=== PATIENT | female | born 1955 | race Caucasian/White ===

== ENCOUNTER 2024-04-22 18:45 | Emergency (ER) | payer MEDICARE, OTHER ==
[~2024-04-22] VITALS: Ht 152.4 cm; Wt 65.8 kg
--- NOTE | 2024-04-22 19:11 | ERN ---
ED Note History of Present Illness Stated Complaint: BLEEDING HEAD INJURY FROM FALL Chief Complaint: Mechanical Fall Time Seen by MD: 18:59 Dictation: This is a 68-year-old female who presented to the emergency room with a history of a fall. Apparently she consumed several margaritas and tripped and fell on the pavement sustained an injury to the back of the head which resulted in a laceration and bleeding. No loss of consciousness patient is not on any blood thinners. No other injuries were reported. Temperature 97.2 pulse 80 respirations 18 blood pressure 192/85 with a pulse oximetry of 98% on room air Chronic medical problems include diabetes mellitus, hypertension and hypercholesterolemia Allergies: Coded Allergies: No Known Drug Allergies (Unverified Allergy, Unknown, 04/22/24) Past Medical History Past Medical History: Diabetes-Type II, High Cholesterol, Hypertension Surgical History: Appendectomy, Family History: Negative Social History: ETOH History: Not Applicable RN Note Reviewed/Agreed w/PFSH: Yes Review of System Dictation Constitutional: Negative for fever,chills, and weight loss Eyes: Negative for injury, pain,redness, and discharge ENT: Negative for injury,pain or swelling Cardiovascular: Negative for chest pain, palpitations, and edema Respiratory: Negative for shortness of breath, cough, and wheezing, Abdomen/GI: Negative for abdominal pain, nausea, vomiting, diarrhea, and constipation Back: Negative for injury and pain : Negative for injury, bleeding and discharge MS/Extremity: Negative for injury and deformity Skin: Negative for rash, and discoloration Neuro: Negative for headache, weakness, numbness, tingling, and seizure Psych: Negative for suicide ideation, homicidal ideation, and hallucinations Initial Vital Sign VS Vital Signs Date Time Temp Pulse Resp B/P (MAP) Pulse Ox O2 Delivery O2 Flow Rate FiO2 04/22/24 18:50 97.2 80 18 192/85 98 Room Air 0 04/22/24 19:31 21 Physical Exam Dictation General: awake, alert, NAD Head/Face: Normocephalic, atraumatic tiny abrasion on the right side posterior scalp right above the occipital area no laceration. On palpation for small hematoma noted Eyes: PERRL, EOMI, vision at baseline ENT: oral cavity clear, TMs clear, no signs of infection Neck: Trachea midline, supple, no nuchal rigidity Cardiovascular: RRR, normal S1/S2, No MRGs, no JVD Respiratory: CTAB, no respiratory distress, No rales or wheezes Abdomen: Soft, non-tender, non-distended, normal bowel sounds, no guarding or rebound. Skin: Warm, dry, normal turgor, no rash MS/Extremity: Pulses equal, no cyanosis, neurovascular intact, FROM Neuro: COAx4, GCS 15, strength 5/5, CN 2-12 intact, normal cerebellar exam, normal gait, Psych: Normal behavior, mood, and affect normal Extremities-trace edema without any palpable cords, Homans sign is negative Results (Laboratory/Radiology) Laboratory/Radiology Laboratory Tests Test 04/22/24 19:40 04/22/24 19:46 Urine Color COLORLESS (YELLOW) Urine Appearance CLEAR (CLEAR) Urine pH 5.5 (5.0-8.0) Urine Specific [place] 1.002 (1.001-1.031) Urine Protein NEGATIVE mg/dL (NEGATIVE) Urine Glucose (UA) NEGATIVE mg/dL (NEGATIVE) Urine Ketones NEGATIVE mg/dL (NEGATIVE) Urine Occult Blood NEGATIVE (NEGATIVE) Urine Nitrate NEGATIVE (NEGATIVE) Urine Bilirubin NEGATIVE mg/dL (NEGATIVE) Urine Urobilinogen 0.2 mg/dL (0.2-1.0) Urine Leukocyte Esterase NEGATIVE Tammy/uL White Blood Count 5.1 K/uL (4.8-10.8) Red Blood Count 4.64 MIL/uL (4.00-5.50) Hemoglobin 12.7 g/dL (12.0-16.0) Hematocrit 38.2 % (36-48) Mean Corpuscular Volume 82.3 fL (79-99) Mean Corpuscular Hemoglobin 27.4 pg (27.0-33.0) Mean Corpuscular Hemoglobin Concent 33.2 g/dL (32.0-36.0) Red Cell Distribution Width 13.7 % (11.0-15.5) Platelet Count 152 K/uL (130-400) Mean Platelet Volume 10.2 fL (7.5-10.5) Immature Granulocyte % (Auto) 0.2 % (0-1) Neutrophils (%) (Auto) 54.5 % (40.0-77.0) Lymphocytes (%) (Auto) 35.4 % (21.0-51.0) Monocytes (%) (Auto) 6.8 % (3.0-13.0) Eosinophils (%) (Auto) 2.5 % (0.0-8.0) Basophils (%) (Auto) 0.6 % (0.0-5.0) Neutrophils # (Auto) 2.8 K/uL (1.8-7.7) Lymphocytes # (Auto) 1.8 K/uL (1.0-4.8) Monocytes # (Auto) 0.4 K/uL (0.1-1.0) Eosinophils # (Auto) 0.13 K/uL (0.00-0.70) Basophils # (Auto) 0.03 K/uL (0.00-0.20) Absolute Immature Granulocyte (auto 0.01 K/uL (0-1) Nucleated Red Blood Cells 0.0 % (0.0-0.19) Sodium Level 136 mmol/L (136-145) Potassium Level 3.4 mmol/L (3.5-5.1) L Chloride Level 99 mmol/L (101-111) L Carbon Dioxide Level 31 mmol/L (21-32) Blood Urea Nitrogen 17 mg/dL (7-18) Creatinine 1.0 mg/dL (0.5-1.0) Glomerular Filtration Rate Calc 62 mL/min (>90) Random Glucose 161 mg/dL (70-105) H Total Calcium 9.0 mg/dL (8.5-10.1) Total Creatine Kinase 89 U/L (21-232) Serum Alcohol 228 mg/dL (0-10) H Labs Reviewed?: Yes EKG Comment: Twelve lead EKG done on 04/22/2024 at 7:38 p.m. showed a heart rate of 75 RI interval 194, QRS 106, QT/QTC 410/457 Impression normal sinus rhythm with no acute STT wave changes noted. Interpreted by ER MD Dr. Carty CT Scan Comment: PATIENT: KELL HONEYCUTT MR#: [id number] : 1955 SEX: F AGE: 68 LOCATION: [facility] ORDER 05 STATUS: REG ER REPORT#: [id number] SERVICE 03 REASON: head injury laceration, alcohol intoxication ORDERING PHYSICIAN: JOSE CARTY MD PROCEDURE: HEAD WO - CT HEAD/BRAIN W/O CONTRAST CT HEAD/BRAIN W/O CONTRAST CLINICAL HISTORY: head injury laceration, alcohol intoxication COMPARISON: None TECHNIQUE: Multiple sequential axial images of the head were obtained from the base of the skull through vertex. CT was performed with one or more of the following dose reduction techniques: automated exposure control, adjustment of the mA and/or kV according to patient size, or use of iterative reconstruction technique FINDINGS: There is mild atrophy and moderate small vessel disease. The orbital contents, paranasal sinuses and mastoid air cells are within normal limits. The calvarium is intact. There is small left posterior scalp hematoma. IMPRESSION: Small scalp hematoma with no underlying skull fracture or intracranial hemorrhage DICTATED BY: DOMINICK SHIN DO DATE: 04/22/242131 ELECTRONICALLY SIGNED BY: DOMINICK SHIN DO DATE: 04/22/242140 PATIENT: KELL HONEYCUTT MR#: [id number] : 1955 SEX: F AGE: 68 LOCATION: [facility] ORDER 14 STATUS: [facility] REPORT#: [id number] SERVICE 13 REASON: fall from standing and ack of the head injury ORDERING PHYSICIAN: JOSE CARTY MD PROCEDURE: C SPIN WO - CT CERVICAL SPINE W/O CONTRAST CT CERVICAL SPINE W/O CONTRAST CLINICAL HISTORY: fall from standing and ack of the head injury COMPARISON: None TECHNIQUE: Sequential axial images of cervical spine without contrast and with sagittal and coronal reconstructions. CT was performed with one or more of the following dose reduction techniques: automated exposure control, adjustment of the mA and/or kV according to patient size, or use of iterative reconstruction technique FINDINGS: There is normal alignment of cervical vertebrae. There is no vertebral body height loss or fractures. The prevertebral soft tissue is unremarkable. The dens and periodontic space are within normal limits.There is mild bony osteophyte production and disc space loss at C4-5 through C6-7. IMPRESSION: Degenerative change with no acute findings DICTATED BY: DOMINICK SHIN DO DATE: 04/22/242135 ELECTRONICALLY SIGNED BY: DOMINICK SHIN DO DATE: 04/22/242140 ED Course ED Course Orders Procedure Category Date Status Time Cbc With Differential LAB 04/22/24 Complete 19:04 Alcohol, Blood LAB 04/22/24 Complete 19:04 Urinalysis Profile LAB 04/22/24 Complete 19:04 12 Lead Ekg Tracing- EKG 04/22/24 Complete Technical 19:04 0.9%Nacl 1000ml (Ns PHA 04/22/24 In Process 1000ml) 19:30 Creatine Kinase, Total LAB 04/22/24 Complete 19:04 Basic Metabolic Panel LAB 04/22/24 Complete 19:04 Ct Head/Brain W/O CT 04/22/24 Resulted Contrast 19:04 Ct Cervical Spine W/O CT 04/22/24 Resulted Contrast 20:14 Current Medications Medications (Trade) Dose Ordered Sig/Yari Route PRN Reason Start Time Stop Time Status Last Admin Dose Admin Sodium Chloride 1,000 ml @ 125 mls/hr ONCE ONCE IV 04/22/24 19:30 04/23/24 03:29 04/22/24 20:46 Vital Signs Date Time Temp Pulse Resp B/P (MAP) Pulse Ox O2 Delivery O2 Flow Rate FiO2 04/22/24 19:31 97.9 81 15 154/70 98 Room Air* 0 21 04/22/24 18:50 97.2 80 18 192/85 98 Room Air 0 We will perform diagnostic labs, advanced imaging and administer medications according to the patient's complaint. Once the results are available, will review and personally interpreted the labs to rule out any acute life- threatening emergency the trach require immediate intervention and treatment. I will then re-evaluate the patient after treatment and diagnostic exams have return to determine whether the patient requires any further testing, can safely be discharged home or need further admission to hospital for additional treatment and evaluation. Medical Decision Making MDM MDM: Differential diagnosis: Concussion, intracranial hemorrhage, depressed skull fractures, contusion, subdural hemorrhage Rationale: Tests considered and ordered secondary to shared decision making include: Previous outside records reviewed: Old ER visits. Risk of complication and/or morbidity or mortality of patient management: None Medications-Per medication reconciliation Need for hospitalization: Patient does not meet criteria for hospitalization. Need for emergency major/minor surgery: No There are no social concerns with this patient. Prescription drug management Prescriptions will include symptomatic care Patient's prior external medical records from other ER visits were reviewed by me as indicated. Prior testing and results from previous visits were reviewed. Prior tests were taken into account with medical decision making and resource utilization, independent historian/historians were used to obtain complete medical history. I independently interpreted the test that were performed, results were reviewed by me and considered findings on radiology if ordered. Medical management and examination interpretation discussions were had by me with other qualified healthcare professionals as indicated for the patient's care. Problem List Problem List: (1) Fall from standing (2) Closed head injury (3) Occipital scalp laceration (4) Alcohol intoxication (5) Hypertension DX & DISP Disposition: Discharge Departure Impression: Primary Impression: Fall from standing Additional Impressions: Closed head injury, Occipital scalp laceration, Alcohol intoxication, Hypertension Condition: Stable Additional Instructions: Patient and the caregiver have been informed of all the diagnostic tests and the imaging conducted during the today's visit to the emergency room and has verbal ized understanding of the results I have personally reviewed and interpreted all diagnostic exams performed here in the ER today as well as the vital signs documented by the nursing staff. The patient is now being discharged to home and should follow up with the primary care physician or the specialist as directed by the ER staff. Follow-up with primary care provider in 1 to 2 days. Take medications as directed here in the emergency room. Okay to continue home medications unless otherwise discussed during your visit in the emergency room today. Return to your nearest emergency room if symptoms worsen or if there is no improvement. Call 911 if you need immediate assistance. Take Tylenol or Motrin [id number] as needed and if no contraindications are present. Increase oral hydration. A wound culture or urine culture was ordered here in the emergency room department please follow-up with primary care provider and advise them to get repeat ports from our facility. If you had any Stephan wrap/splints th at were applied here, please do not remove them until you see your primary care or specialty. Patient's spouse is the designated truck driver flatbed and he will take care of her JOSE CARTY MD Apr 22, 2024 19:11
--- NOTE | 2024-04-22 19:31 | NUR ---
WHEELED TO ROOM 18 AT THIS TIME FROM TRIAGE, PT ARRIVED POV SP GLF, - LOC, -BT, + HEAD STRIKE, C-COLLAR IN PLACE, DRESSING TO BACK OF SCALP. SMALL ABRASION NOTED, NO ACTIVE BLEEDING. PT STATES SHE DRANK TOO MUCH AND FELL. PT IS A&OX4, GCS 5, RESP EVEN AND UNLABORED ON RA, NO ACUTE DISTRESS NOTED AT TIME OF ARRIVAL.
--- NOTE | 2024-04-22 19:39 | EKG ---
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
[2024-04-22 19:53] LABS: BASOPHILS # (AUTO) 0.03 K/uL (0.00-0.20); BASOPHILS % (AUTO) 0.6 % (0.0-5.0); EOSINOPHILS # (AUTO) 0.13 K/uL (0.00-0.70); EOSINOPHILS % (AUTO) 2.5 % (0.0-8.0); HEMATOCRIT 38.2 % (36-48); IMMATURE GRANULOCYTE ABSOLUTE 0.01 K/uL (0-1); LYMPHOCYTES # (AUTO) 1.8 K/uL (1.0-4.8); LYMPHOCYTES % (AUTO) 35.4 % (21.0-51.0); MEAN CORPUSCULAR HEMOGLOBIN 27.4 pg (27.0-33.0); MEAN CORPUSCULAR HGB CONC 33.2 g/dL (32.0-36.0); MEAN CORPUSCULAR VOLUME 82.3 fL (79-99); MONOCYTES # (AUTO) 0.4 K/uL (0.1-1.0); MONOCYTES % (AUTO) 6.8 % (3.0-13.0); NEUTROPHILS # (AUTO) 2.8 K/uL (1.8-7.7); NEUTROPHILS % (AUTO) 54.5 % (40.0-77.0); PLATELET COUNT (AUTO) 152 K/uL (130-400); RED BLOOD CELL COUNT(AUTO) 4.64 MIL/uL (4.00-5.50); RED CELL DISTRIBUTION WIDTH 13.7 % (11.0-15.5); WHITE BLOOD COUNT (AUTO) 5.1 K/uL (4.8-10.8)
[2024-04-22 20:00] LABS: POTASSIUM 3.4 mmol/L (3.5-5.1)
[2024-04-22 20:03] LABS: APPEARANCE,URINE CLEAR (CLEAR); BILIRUBIN,URINE NEGATIVE (NEGATIVE); COLOR,URINE COLORLESS (YELLOW); GLUCOSE, URINE (UA) NEGATIVE (NEGATIVE); KETONES,URINE NEGATIVE (NEGATIVE); LEUKOCYTE ESTERASE ,URINE NEGATIVE Leu/uL (NEGATIVE); NITRATE,URINE NEGATIVE (NEGATIVE); OCCULT BLOOD,URINE NEGATIVE (NEGATIVE); PH,URINE 5.5 (5.0-8.0); PROTEIN,URINE NEGATIVE (NEGATIVE); UROBILINOGEN,URINE 0.2 mg/dL (0.2-1.0)
[2024-04-22 20:08] LABS: ADD UA MICROSCOPIC NO
--- NOTE | 2024-04-22 20:30 | NUR ---
PT CONTINUES IN ER18, NO ACUTE DISTRESS NOTED, A&OX4, GCS 15, RESP EVEN AND UNLABORED ON RA. VSS. C-COLLAR REMAINS IN PLACE. PT DENIES CERVICAL TENDERNESS AT THIS TIME. NO ACTIVE BLEEDING NOTED.
[2024-04-22] MEDS: 0.9%NACL 1000ML 1,000 ML IV ONE (20:46)
--- NOTE | 2024-04-22 21:41 | HMCIMG ---
CT HEAD/BRAIN W/O CONTRAST CLINICAL HISTORY: head injury laceration, alcohol intoxication COMPARISON: None TECHNIQUE: Multiple sequential axial images of the head were obtained from the base of the skull through vertex. CT was performed with one or more of the following dose reduction techniques: automated exposure control, adjustment of the mA and/or kV according to patient size, or use of iterative reconstruction technique FINDINGS: There is mild atrophy and moderate small vessel disease. The orbital contents, paranasal sinuses and mastoid air cells are within normal limits. The calvarium is intact. There is small left posterior scalp hematoma. IMPRESSION: Small scalp hematoma with no underlying skull fracture or intracranial hemorrhage
--- NOTE | 2024-04-22 21:41 | HMCIMG ---
CT CERVICAL SPINE W/O CONTRAST CLINICAL HISTORY: fall from standing and ack of the head injury COMPARISON: None TECHNIQUE: Sequential axial images of cervical spine without contrast and with sagittal and coronal reconstructions. CT was performed with one or more of the following dose reduction techniques: automated exposure control, adjustment of the mA and/or kV according to patient size, or use of iterative reconstruction technique FINDINGS: There is normal alignment of cervical vertebrae. There is no vertebral body height loss or fractures. The prevertebral soft tissue is unremarkable. The dens and periodontic space are within normal limits.There is mild bony osteophyte production and disc space loss at C4-5 through C6-7. IMPRESSION: Degenerative change with no acute findings
--- NOTE | 2024-04-22 22:00 | NUR ---
C-COLLAR CLEARED AT THIS TIME BY ER MD, SUPERFICIAL ABRASION TO BACK OF SCALP CLEASED AND PAT DRIED, DRESSED WITH GAUZE. NO SIGNS OF ACUTE DISTRESS NOTED, PT A&OX4, GCS 15, RESP EVEN AND UNLABORED ON RA
[2024-04-22 22:15] VITALS: BP 151/73; PULSE 76; RESP 19; TEMP 97.9; O2SAT 98
== END 2024-04-22 22:31 | disposition home or self-care (01) ==
LOC: EDH 18:45
DX: S01.01XA Laceration without foreign body of scalp, initial encounter (principal); F10.129 Alcohol abuse with intoxication, unspecified; E11.9 Type 2 diabetes mellitus without complications; E78.00 Pure hypercholesterolemia, unspecified; I10 Essential (primary) hypertension; Z90.49 Acquired absence of other specified parts of digestive tract; W01.0XXA Fall on same level from slipping, tripping and stumbling without subsequent striking against object, initial encounter; Y93.89 Activity, other specified; Y92.89 Other specified places as the place of occurrence of the external cause; Y99.8 Other external cause status
CPT/HCPCS: 36415; 70450; 72125; 80048; 81003; 82550; 85025; 93005; 99285